=== PATIENT | male | born 1965 | race Caucasian/White ===

== ENCOUNTER → 2021-04-05 20:00 | Outpatient (CLI) | payer OTHER, SELFPAY | PROVIDERS: PCP Family Medicine; Visit Provider Psychiatry & Neurology Neurology | DX: G47.30 Sleep apnea, unspecified (principal); G25.81 Restless legs syndrome | CPT/HCPCS: 95810 ==

== ENCOUNTER 2022-06-05 17:48 | Emergency (ER) | payer OTHER, SELFPAY ==
[2022-06-05 17:49] VITALS: BP 139/85; PULSE 82; RESP 19; TEMP 36.2; O2SAT 99; BMI 21.9
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
[2022-06-05] MEDS: Ketorolac 15 MG/ML Vial IV (19:29)
[2022-06-05] MEDS: Metoclopramide 10 MG/2 ML Vial IV (19:29)
[2022-06-05] MEDS: 0.9% Normal Saline 1,000 ML 999 ML IV (19:29)
[2022-06-05] MEDS: DiphenhydrAMINE 50 MG/ML Syringe 25 MG IV (19:29)
== END 2022-06-05 22:20 | disposition home or self-care (01) ==
PROVIDERS: Emergency Provider Student in an Organized Health Care Education/Training Program; PCP Family Medicine; Visit Provider Student in an Organized Health Care Education/Training Program
DX: G43.909 Migraine, unspecified, not intractable, without status migrainosus (principal)
CPT/HCPCS: 96361; 96374; 96375; 99283; J7030

== ENCOUNTER → 2022-11-23 | Outpatient (CLI) | payer OTHER, SELFPAY | END | disposition home or self-care (01) | PROVIDERS: PCP Family Medicine | DX: G47.33 Obstructive sleep apnea (adult) (pediatric) (principal) | CPT/HCPCS: 95811 ==